=== PATIENT | female | born 1965 | race Asian ===

== ENCOUNTER 2021-04-26 06:47 | Inpatient (IN) | payer OTHER, SELFPAY ==
[~2021-04-26] VITALS: Ht 157.5 cm; Wt 47.6 kg
[2021-04-26] MEDS ORDERED: CEFAZOLIN SOD 2 GM in D5W 50 ML IV ONE (07:30)
[2021-04-26] MEDS ORDERED: SEVOFLURANE 15 MIN GAS INH ONE (08:54)
[2021-04-26] MEDS ORDERED: LIDOCAINE/EPI 1% 1:100000 20 ML VIAL INJ ONE (08:54)
[2021-04-26] MEDS ORDERED: KETOROLAC TROMETHAMINE 30 MG VIAL IVP ONE (08:54)
[2021-04-26] MEDS ORDERED: METOCLOPRAMIDE HCL 10 MG/2 ML VIAL IVP ONE (08:54)
[2021-04-26] MEDS ORDERED: PHENYLEPHRINE HCL 10 MG/ML VIAL (NEOSYNEPHRINE) IV ONE (08:54)
[2021-04-26] MEDS ORDERED: ONDANSETRON HCL 4 MG/2 ML VIAL IVP ONE (08:54)
[2021-04-26] MEDS ORDERED: ALFENTANIL HCL 1000 MCG/2 ML AMP IVP ONE (08:54)
[2021-04-26] MEDS ORDERED: DEXAMETHASONE SOD PHOSPHATE 4 MG/ML VIAL IVP ONE (08:54)
[2021-04-26] MEDS ORDERED: MIDAZOLAM HCL 5 MG/5 ML VIAL IVP ONE (08:54)
[2021-04-26] MEDS ORDERED: ePHEDrine sulfate 50 MG/ML VIAL IVP ONE (08:54)
[2021-04-26] MEDS ORDERED: ROCURONIUM BROMIDE 10 MG/ML (ZEMURON) IV ONE (08:54)
[2021-04-26] MEDS ORDERED: LR 1,000 ML IV.SOLN IV ONE (08:54)
[2021-04-26] MEDS ORDERED: PROPOFOL 200MG/ 20ML VIAL (DIPRIVAN) IV ONE (08:54)
[2021-04-26] MEDS ORDERED: CALC-823 PO (09:50)
[2021-04-26] MEDS ORDERED: ASCO500T20 PO (09:50)
[2021-04-26] MEDS ORDERED: MULT-976 PO (09:50)
[2021-04-26] MEDS ORDERED: VITD2000 PO (09:50)
[2021-04-26] MEDS ORDERED: TURM1CAP2 PO (09:50)
[2021-04-26] MEDS ORDERED: ONDANSETRON HCL 4 MG/2 ML VIAL IVP PRN ×2 (11:15→13:30)
[2021-04-26] MEDS ORDERED: KETOROLAC TROMETHAMINE 30 MG VIAL IVP PRN (11:15)
[2021-04-26] MEDS ORDERED: HYDROmorphone 1 MG/ML INJ. CARTRIDGE IVP PRN (11:15)
[2021-04-26] MEDS ORDERED: MEPERIDINE HCL/PF 25 MG/ML DISP.SYRIN IVP PRN (11:15)
[2021-04-26] MEDS ORDERED: LR 1,000 ML IV SCH (11:15)
[2021-04-26] MEDS ORDERED: NALOXONE HCL 0.4 MG/ML AMP (NARCAN) IVP PRN (11:15)
[2021-04-26] MEDS ORDERED: HYDROcodone/ACETAMIN 5-325 MG TAB (NORCO/ VICODIN) PO PRN (13:30)
[2021-04-26] MEDS ORDERED: ONDANSETRON 4 MG ODT TAB PO PRN (13:30)
--- NOTE | 2021-04-26 14:45 | NUR ---
patient admitted from PACU, transfer in [facility], iv in r hand 20g intact patent, on room air, incision clean with dermabond in place, kirstie drain draining red fluid, a/ox4, no s/s of distress, will continue to monitor.
[2021-04-26 16:19] VITALS: BP_SYST 105
--- NOTE | 2021-04-26 19:30 | NUR ---
OPENING NOTE RECEIVED REPORT FROM DAY RN. PATIENT IN BED WITH RESPIRATIONS EVEN AND UNLABORED ON RA. NO SIGNS OF DISTRESS NOTED. PT CURRENTLY DENIES PAIN. ANTERIOR NECK INCISION OPEN TO AIR. MODERATE REDNESS. NO DRAINAGE OR ODOR NOTED TO INCISION SITE. DYLAN DRAIN INTACT AND DRAINING SANGUINOUS FLUID. PT ABLE TO AMBULATE WITHOUT ASSISTANCE. GAIT STEADY. NONSLIP SOCKS INTACT. PT AOX4. IS AT BEDSIDE. PT ABLE TO DEMONSTRATE HOW TO USE PROPERLY. SAFETY PRECAUTIONS IN PLACE. CALL LIGHT WITHIN REACH. WILL CONTINUE TO MONITOR.
[2021-04-26 20:00] VITALS: BP_SYST 101
--- NOTE | 2021-04-26 20:03 | NUR ---
IVF STARTED AND MEDICATIONS ADMINISTERED EDUCATED PT ON NEW MEDICATIONS. PT VERBALIZED UNDERSTANDING.
[2021-04-26] MEDS: KCL 20 mEq in D5/0.45NS 1000mL 1,000 ML IV SCH (20:11)
[2021-04-26] MEDS: CALCIUM 500 MG/TAB PO SCH (20:11)
--- NOTE | 2021-04-26 22:52 | NUR ---
PAGED DR. ALVARADO PT REQUESTING TYLENOL FOR "FUTURE PAIN". PT REFUSES PRN PAIN MEDICATION IN EMAR. WILL AWAIT CALL BACK.
[2021-04-26 23:07] LABS: ALBUMIN 3.4 g/dL (3.4-4.8); CALCIUM 8.3 mg/dL (8.4-11.0)
[2021-04-27] MEDS: KCL 20 mEq in D5/0.45NS 1000mL 1,000 ML IV SCH (00:26)
[2021-04-27 01:40] VITALS: BP_SYST 105
--- NOTE | 2021-04-27 05:21 | NUR ---
rounds pt in bed with respirations even and unlabored on RA. ivf running. will continue to monitor.
[2021-04-27] MEDS ORDERED: LEVOTHYROXINE SODIUM 0.15 MG TABLET PO SCH (07:00)
[2021-04-27] MEDS: LEVOTHYROXINE SODIUM 0.088 MG TABLET PO SCH ×2 (07:00→07:30)
--- NOTE | 2021-04-27 07:22 | NUR ---
closing note pt laying in bed. no signs of distress noted. report given to day rn. all needs me. safety precautions in place.
[2021-04-27 08:00] VITALS: BP_SYST 121
[2021-04-27 08:15] LABS: ALBUMIN 3.4 g/dL (3.4-4.8); CALCIUM 8.7 mg/dL (8.4-11.0)
[2021-04-27] MEDS ORDERED: CHOLECALCIFEROL (VITAMIN D3) 2,000 UNIT TABLET PO SCH (09:00)
[2021-04-27] MEDS ORDERED: ASCORBIC ACID 500 MG TABLET PO SCH (09:00)
[2021-04-27] MEDS: CALCIUM 500 MG/TAB PO SCH ×2 (09:01→14:56)
--- NOTE | 2021-04-27 10:54 | NUR ---
Nutrition Update Donte Scale 18 noted. Pt admitted for malignant neoplasm of thyroid gland. Diet: soft (low fiber/bland) BMI: 19.2 kg/m2 RD to follow per nutrition care standards.
[2021-04-27 12:38] VITALS: BP_SYST 98
[2021-04-27 14:44] VITALS: BP_SYST 98
--- NOTE | 2021-04-27 15:40 | NUR ---
NURSING NOTES: 0720AM: PATIENT IS RESTING IN BED QUIETLY. NO ADDITIONAL DISTRESS NOTED. BED IN LOW AND LOCK POSITION. CALL LIGHT WITHIN REACH. L DYLAN DRAIN C/D/I. STABLE CONDITION AT THIS TIME. 0800AM: EXPLAINED PLAN OF CARE AND PATIENT VERBALIZED UNDERSTANDING. WILL CONT TO MONITOR. 0815AM: PATIENT IS ABLE TO TOLERATED CLEAR LIQUID DIET. 0830AM: PATIENT IS IN THE BATHROOM DOING HER MORNING CARE. 0900AM: PATIENT RETURNED DEMONSTRATION OF EMPTYING THE DYLAN DRAIN. PATIENT VERBALIZED UNDERSTANDING ON DOCUMENTING THE DAY, TIME, AMOUNT AND COLOR OF DRAIN. 1000AM: PATIENT IS RESTING IN BED PLAYING WITH HER PHONE. WILL CONT TO MONITOR. 1200PM: PATIENT IS RESTING IN BED EATING HER LUNCH. PATIENT IS AWARE THAT SHE WILL BE DC HOME TODAY. PER PATIENT, HER SON WILL COME BETWEEN 3PM-4PM. WILL CONT TO MONITOR. 1230PM: PATIENT TOLERATED HER DIET. 1400: PATIENT IS SITTING AT THE SIDE OF THE BED. NO ADDITIONAL DISTRESS NOTED. WILL CONT TO MONITOR. 1530: DC INSTRUCTION GIVEN AND EXPLAINED. PATIENT VERBALIZED UNDERSTANDING. TWO SON AT THE BEDSIDE. IV REMOVED FROM THE RH. IV CATH INTACT WHEN REMOVED. COVER SITE WITH GAUZE AND SECURE WITH BAND-AID. PRINTED OUT MD POST OP INSTRUCTION AND MADE HER AWARE OF ER PRECAUTION AND APPT WITH SURGEON FOR DYLAN REMOVAL ON FRIDAY OR FRIDAY NEXT WEEK. PATIENT VERBALIZED UNDERSTANDING. 1540: PATIENT WHEELED OUT BY THE FOOD SALES CLERK ACCOMPANIED BY PATIENT'S 2 SON. LEFT THE FACILITY IN A STABLE CONDITION. ALL PERSONAL BELONGINGS WAS TAKEN BY PATIENT AND DENIES MISSING ITEMS. DYLAN TO THE LEFT NECK C/D/I. EMPTIED WHEN LEFT THE FACILITY. TOTAL OF 50CC SANGENOUS. NO FOUL SMELL. NO S/SX OF INFECTION TO NECK INCISION.
== END 2021-04-27 15:50 | disposition home or self-care (01) | DRG 627 ==
LOC: SDS 06:47 → SMU 06:49 → SDS 11:39 → SMU 11:41
PROVIDERS: ADMIT Otolaryngology; ATTEND Otolaryngology
PROC: 0GTH0ZZ Resection of Right Thyroid Gland Lobe, Open Approach (ICD-10-PCS; 2021-04-26)
PROC: 0GTG0ZZ Resection of Left Thyroid Gland Lobe, Open Approach (ICD-10-PCS; principal; 2021-04-26 09:29)
DX: C73 Malignant neoplasm of thyroid gland (principal); E04.2 Nontoxic multinodular goiter; Z20.822 Contact with and (suspected) exposure to COVID-19; Z79.899 Other long term (current) drug therapy
CPT/HCPCS: 36415; 82040; 82310; 83970; 87081; 88307; C1782; J0690; J1100; J1885; J2250; J2370; J2405; J2704; J2765; J3490; J7060; J7120; U0003